=== PATIENT | male | born 1985 | race Caucasian/White ===

== ENCOUNTER 2024-04-30 01:00 | Emergency (ER) | payer OTHER ==
[~2024-04-30] VITALS: Ht 177.8 cm; Wt 75.0 kg
[2024-04-30 01:04] VITALS: BP 148/80; PULSE 91; RESP 20; TEMP 98.1; O2SAT 99
[2024-04-30] MEDS ORDERED: NAPR-681 PO (01:55)
[2024-04-30] MEDS ORDERED: CLOT15CR27 TP (01:55)
[2024-04-30] MEDS ORDERED: DOXY100T28 MT (01:55)
== END 2024-04-30 02:38 | disposition home or self-care (01) ==
LOC: ER 01:19
DX: L03.115 Cellulitis of right lower limb (principal); B35.3 Tinea pedis; M79.672 Pain in left foot; Z88.0 Allergy status to penicillin
CPT/HCPCS: 99283